=== PATIENT | female | born 1995 | race Caucasian/White ===

== ENCOUNTER 2016-09-06 12:01 | Emergency (ER) | payer OTHER ==
[~2016-09-06] VITALS: Ht 160 cm; Wt 54.2 kg
[~2016-09-06 12:01] MED LIST: ALPR-475 PO
[2016-09-06 12:02] VITALS: BP 99/68
== END 2016-09-06 12:54 | disposition home or self-care (01) ==
LOC: ED 12:33
DX: J40 Bronchitis, not specified as acute or chronic (principal); J01.00 Acute maxillary sinusitis, unspecified; Z87.891 Personal history of nicotine dependence
CPT/HCPCS: 71010; 99283

== ENCOUNTER 2017-05-20 17:26 | Emergency (ER) | payer OTHER ==
[~2017-05-20] VITALS: Ht 160 cm; Wt 57.3 kg
[2017-05-20 18:08] LABS: BASOPHILS # (AUTO) 0.06 x10^3/uL (0-0.1); BASOPHILS % (AUTO) 1 % (0-1); EOSINOPHILS # (AUTO) 0.15 x10^3/uL (0-0.4); EOSINOPHILS % (AUTO) 1 % (1-7); LYMPHOCYTES # (AUTO) 1.71 x10^3/uL (1-3.4); LYMPHOCYTES % (AUTO) 16 % (22-44); MD NO; MEAN CORPUSCULAR HEMOGLOBIN 30.4 pg (27.0-34.8); MEAN CORPUSCULAR HGB CONC 34.1 g/dL (32.4-35.8); MEAN CORPUSCULAR VOLUME 89.1 fL (80-100); MEAN PLATELET VOLUME 8.3 fL (7.4-10.4); MONOCYTES # (AUTO) 0.78 x10^3/uL (0.2-0.8); MONOCYTES % (AUTO) 7 % (2-9); NEUTROPHILS # (AUTO) 7.97 x10^3/uL (1.8-6.8); NEUTROPHILS % (AUTO) 75 % (42-75); PLATELET COUNT 264 x10^3/uL (130-400); RED CELL DISTRIBUTION WIDTH 12.5 % (9.6-15.2)
[2017-05-20 18:20] LABS: ALBUMIN 3.9 g/dL (3.4-5.0); ANION GAP 4 mmol/L (5-15); CHLORIDE 107 mmol/L (98-107); CREATININE 0.94 mg/dL (0.55-1.02)
[2017-05-20] MEDS ORDERED: DICYCLOMINE 10 MG/ML, 2ML IM ONE (19:00)
[2017-05-20] MEDS ORDERED: ONDANSETRON ODT 4 MG PO ONE (19:00)
[2017-05-20] MEDS ORDERED: IBUPROFEN 200 MG TABLET PO ONE (19:00)
[2017-05-20 19:07] LABS: MICROSCOPIC INDICATED
[2017-05-20] MEDS ORDERED: IBUPROFEN 200 MG TABLET ONE (19:07)
[2017-05-20] MEDS ORDERED: DICYCLOMINE 10 MG/ML, 2ML ONE (19:07)
[2017-05-20] MEDS ORDERED: ONDANSETRON ODT 4 MG ONE (19:07)
[2017-05-20 19:16] LABS: CULTURE INDICATED? YES
[2017-05-20 19:54] VITALS: BP 100/52
== END 2017-05-20 20:02 | disposition home or self-care (01) ==
LOC: ED 20:00
DX: R10.2 Pelvic and perineal pain (principal); Z87.891 Personal history of nicotine dependence
CPT/HCPCS: 36415; 76830; 80048; 81001; 82040; 84703; 85025; 87086; 96372; 99285; J0500; Q0162

== ENCOUNTER 2018-07-30 20:05 | Emergency (ER) | payer MEDICAID, OTHER ==
[~2018-07-30] VITALS: Ht 160 cm; Wt 60.5 kg
--- NOTE | 2018-07-30 20:41 | NUR ---
URINE SAMPLE COLLECTED AND SENT.
[2018-07-30 20:52] LABS: HCG UR SG 1.023 (1.003-1.030); MICROSCOPIC INDICATED
[2018-07-30 21:00] LABS: CULTURE INDICATED? NO
[2018-07-30 21:18] VITALS: BP 120/77
--- NOTE | 2018-07-30 21:18 | NUR ---
Patient/Caregiver given discharge instructions and they have confirmed that they understand the instructions. Patient ambulatory with steady gait.
== END 2018-07-30 21:21 | disposition home or self-care (01) ==
LOC: ED 21:15
DX: L25.9 Unspecified contact dermatitis, unspecified cause (principal); N91.2 Amenorrhea, unspecified; R11.0 Nausea; R10.9 Unspecified abdominal pain; Z90.89 Acquired absence of other organs
CPT/HCPCS: 81001; 81025; 99283